=== PATIENT | female | born 1945 | race Caucasian/White ===

== ENCOUNTER → 2017-08-15 | Outpatient (CLI) | payer MEDICARE, OTHER ==
[2014-11-11 13:04] VITALS: BMI 37.9
[~2017-08-15] MED LIST: BENA20TA8 PO; ENAL20TA99 PO; HYDR-317 PO; KET10 PO; PRAV40TA78 PO; VALE150C PO
--- NOTE | 2017-08-15 11:39 | RADIOLOGY IMAGING REPORT ---
FACILITY: [facility] - [place] PATIENT NAME: Lauren Garay : 1945 MR: [id number] V: [id number] EXAM DATE: ORDERING PHYSICIAN: IRMA PAULINO TECHNOLOGIST: Location: [facility] [place] Patient: Lauren Garay : 1945 Visit/Account:[id number] Date of Sevice: 08/15/2017 DEXA Scan Clinical history: Asymptomatic postmenopausal state. Comparison: DEXA scan from 02/26/2000. LUMBAR SPINE: The bone mineral density (BMD) measured from L1-L4 correlates with a Z-score of 0.1 and a T-score of -1 which is Normal as defined by the World Health Organization. The corresponding risk of fracture i n the lumbar spine is 2 times increased compared with a young adult reference population. This value has decreased by 13.7 % since the prior study. More than 5% change is considered significant. HIP: Bone mineral density (BMD) measured in the LEFT total hip region correlates with a Z-score -0.3 and a T-score of -1.4 which is osteopenia as defined by the World Health Organization. The corresponding risk of fracture in the hip is 2-3 times increased compared to a young adult reference population. Th is value has decreased by 22 % since the prior study. More than 5% change is considered significant. T score left femoral neck -2.1 Bone mineral density (BMD) measured in the Femoral Neck region measures 0.745 g/cm?. IMPRESSION: 1. Lumbar spine: Normal. There has been 13.7% decrease in the bone mineral density since the previo us exam. 2. Left Total Hip: Osteopenia. There has been 22% decrease in the bone mineral density since the pr evious exam. 3. Femoral Neck: Bone Mineral Density is 0.745 g/cm? The next DEXA scan of this patient should include the following sites: L1-L4 and the left hip. FRAX? WHO Fracture Risk Assessment Tool link: <http://www.shef.ac.uk/FRAX/tool.jsp?locationValue=9> PLEASE NOTE: 1) The World Health Organization defines low BMD as follows: T-score Normal > -1 Osteopenia < -1 and > -2.5 Osteoporosis < -2.5 without fractures Established osteoporosis < -2.5 with fractures 2) In general, you may wish to consider: Diagnosis Treatment Follow-up DEXA Normal BMD Prevention 2-3 years Osteopenia Prevention/therapy 1-2 years Osteoporosis Therapy Yearly 3) Fracture risk estimated from the T-score is more accurate for vertebral fractures (often spontane ous) than for hip fractures. Report Dictated By: Mahnaz Wadsworth MD at 08/15/2017 11:32 AM Report E-Signed By: Mahnaz Wadsworth MD at 08/15/2017 11:34 AM WSN:[email or web address]
--- NOTE | 2017-08-15 11:43 | RADIOLOGY IMAGING REPORT ---
[place] [facility] [place] Lauren Garay : 1945 MR: [id number] V: [id number] EXAM DATE: ORDERING PHYSICIAN: IRMA PAULINO TECHNOLOGIST: Location: [facility] Patient: Lauren Garay : 1945 Visit/Account:[id number] Date of Sevice: 08/15/2017 THYROID HISTORY: thyroid nodules COMPARISON: July 15, 2016 FINDINGS: SIZE: Normal. Right lobe: 4.8 x 1.9 x 1.6 cm Left lobe: 4.6 x 1.3 x 1.4 cm Isthmus: 6 mm PARENCHYMA: Homogeneous. NODULES: Right lobe: * There are several well-circumscribed cystic and solid hypoechoic nodules in the right lobe all dionisio suring less than 1 cm Left lobe: * There are several cystic and well-circumscribed solid nodules in the left lobe all measuring less than 1 cm. Isthmus: * There is a is a solid well-circumscribed hypoechoic nodule in the isthmus measuring 8 x 6 x 5 mm a nd appears decreased in size when compared to the prior study VASCULARITY: Within normal limits. ADDITIONAL FINDINGS: None. IMPRESSION: A well-circumscribed solid and cystic hypoechoic nodules in both lobes of the thyroid gland all measu ring less than 1 cm The previously noted partially complex nodule in the isthmus has decrease in size and now measures 8 x 6 x 5 mm. REFERENCE: 2015 [place] [employer] Management Guidelines for Adult Patients with Thyroid Nodules and D ifferentiated Thyroid Cancer: The [place] [employer] Guidelines Task Force on Thyroid Nodul es and Differentiated Thyroid Cancer. SONOGRAPHIC PATTERNS: * Benign: Purely cystic nodules (no solid component); estimated risk of malignancy <1 percent; no bi opsy recommended. * Very Low Suspicion: Spongiform or partially cystic nodules without any of the sonographic features described in low, intermediate, or high suspicion patterns; estimated risk of malignancy <3 percent; consider FNA at > 2 cm (Observation without FNA is also a reasonable option). * Low Suspicion: Isoechoic or hyperechoic solid nodule, or partially cystic nodule with eccentric so lid areas, without microcalcification, irregular margin or ETE (extra-thyroidal extension), or taller than wide shape; estimated risk of malignancy 5-10 percent; recommend FNA at >1.5 cm. * Intermediate Suspicion: Hypoechoic solid nodule with smooth margins without microcalcifications, E TE (extra-thyroidal extension), or taller than wide shape; estimated risk of malignancy 10-20 percent ; recommend FNA at > 1 cm. * High Suspicion: Solid hypoechoic nodule or solid hypoechoic component of a partially cystic nodule with one or more of the following features: irregular margins (infiltrative, microlobulated), microc alcifications, taller than wide shape, rim calcifications with small extrusive soft tissue component, evidence of ETE (extra-thyroidal extension); estimated risk of malignancy >70-90 percent; recommend FNA at > 1 cm. NOTES: * Although a sonographically suspicious subcentimeter thyroid nodule without evidence of extrathyroi moreno extension or sonographically suspicious lymph nodes may be observed with close sonographic follow -up rather than pursuing immediate FNA, patient age and preference may modify decision-making. A > 50% interval increase in nodule volume and/or development of new suspicious sonographic features are felt to be a valid reasons for potential re-aspiration of a nodule previously shown to have benig n FNA cytology. Report Dictated By: Mahnaz Wadsworth MD at 08/15/2017 11:34 AM Report E-Signed By: Mahnaz Wadsworth MD at 08/15/2017 11:39 AM WSN:[email or web address]
--- NOTE | 2017-08-15 15:28 | RADIOLOGY IMAGING REPORT ---
FACILITY: [facility] [place] PATIENT NAME: CATRINA STEIN : [id number] MR: [id number] V: [id number] EXAM DATE: [id number] ORDERING PHYSICIAN: IRMA PAULINO TECHNOLOGIST: Kim Shabazz PROCEDURE:BILATERAL DIGITAL SCREENING MAMMOGRAM WITH CAD ASSISTED INTERPRETATION & 3D TOMOSYNTHESIS COMPARISON:Prior mammograms 07/15/16, 03/28/15, 03/13/15, 12/21/13. INDICATIONS:screening FINDINGS: Small amount of fibroglandular tissue is seen throughout the breasts. The parenchymal pattern has remained stable allowing for difference in mammographic technique & patient positioning. There is no evidence of malignant appearing mass, malignant appearing calcifications or other secondary sign of malignancy in either breast. DIAGNOSTIC CATEGORY 1--NEGATIVE. RECOMMENDATIONS: ROUTINE MAMMOGRAM AND CLINICAL EVALUATION. IMPRESSION: BIRADS 1: Negative No significant abnormality is seen. Dictated by: Mahnaz Wadsworth M.D. on 08/15/2017 at 12:02 Transcribed by: JUSTICE on 08/15/2017 at 13:20 Approved by: Mahnaz Wadsworth M.D. on 08/15/2017 at 15:27 [facility]
== END ==
LOC: MAMO 01:40
PROVIDERS: ATTEND Nurse Practitioner Family
DX: Z13.820 Encounter for screening for osteoporosis (principal); Z12.31 Encounter for screening mammogram for malignant neoplasm of breast; M85.88 Other specified disorders of bone density and structure, other site; Z78.0 Asymptomatic menopausal state; E04.2 Nontoxic multinodular goiter
CPT/HCPCS: 76536; 77063; 77067; 77080

== ENCOUNTER → 2018-01-26 | Outpatient (CLI) | payer MEDICARE, OTHER ==
[2014-11-11 13:04] VITALS: BMI 37.9
[~2018-01-26] MED LIST changes: +BENA20TA64 PO; -BENA20TA8 PO
[2018-01-26 08:52] LABS: PLATELET COUNT, AUTOMATED 181 K/uL (150-450)
[2018-01-26 09:10] LABS: LDL CHOLESTEROL 99 mg/dl
== END ==
LOC: LAB 08:19
PROVIDERS: ATTEND Nurse Practitioner Family
DX: E78.5 Hyperlipidemia, unspecified (principal); E04.1 Nontoxic single thyroid nodule; I10 Essential (primary) hypertension
CPT/HCPCS: 36415; 82040; 82247; 82310; 82374; 82435; 82465; 82565; 82947; 83718; 84075; 84132; 84155; 84295; 84443; 84450; 84460; 84478; 84520; 85025

== ENCOUNTER 2018-02-25 20:55 | Emergency (ER) | payer MEDICARE, OTHER ==
[2014-11-11 13:04] VITALS: Wt 81.6 kg
[~2018-02-25 20:55] MED LIST changes: +BENZ200C15 PO; +CIPR-344 PO; +FLU180SY11 IM; +PNEU0.5D3 IM; +ROSU10TA5 PO
[2018-02-25] MEDS ORDERED: PRAV20TA65 PO (21:11)
--- NOTE | 2018-02-25 21:16 | ER Report ---
History and Physical Time Seen By MD: 21:17 Hx. of Stated Complaint: PT STATES SHE FELT NAUSEOUS FRIDAY, FELT BETTER FRIDAY. THEN FRIDAY NIGHT STARTED FEELING BAD AGAIN. DENIES ANY ABDOMINAL PAIN. HPI/ROS CHIEF COMPLAINT: Nausea HISTORY OF PRESENT ILLNESS: This is a 73-year-old female. She was nauseated on Friday, felt better on Friday, then nauseated again. Nausea continues. Generalized discomfort in the abdomen but no pain. No chest pain or shortness of breath. She did have chills last night but no fever or chills today. Has a mild cough. Has chronic sinus congestion which is unchanged. Denies any dysuria or fr equency. Very limited in the way of bowel movements but she has not been eating much. Denies constipation or diarrhea. Allergies: Coded Allergies: amoxicillin (Verified Allergy, Intermediate, RASH, 11/10/14) Penicillins (Verified Allergy, Mild, RASH, 01/18/08) Home Meds Active Scripts Ondansetron (ONDANSETRON ODT) 4 Mg Tab.rapdis, 4 MG PO Q6H PRN for NAUSEA/VOMITING, #20 TAB 0 Refills Prov:MELISSA JACINTO MD 02/25/18 Sulfamethoxazole/Trimet 800-160 Mg Tab (BACTRIM DS TABLET) 1 Each Tablet, 1 TAB PO Q12H, #12 TAB 0 Refills Prov:MELISSA JACINTO MD 02/25/18 Benazepril Hcl (BENAZEPRIL HCL) 20 Mg Tab, 2 TAB PO QDAY, #180 TAB Prov:IRMA PAULINO APRN-C 02/25/18 Rosuvastatin Calcium (Rosuvastatin Calcium) 10 Mg Tablet, 1 TAB PO DAILY, #90 TAB 0 Refills Prov:IRMA PAULINO APRN-C 01/29/18 Reported Medications Pravastatin Sodium (PRAVACHOL) 20 Mg Tablet, 20 MG PO QDAY, TAB 02/25/18 Valerian Root Extract (Valerian) 150 Mg Capsule, 1-2 CAP PO QWEEK 07/14/17 Discontinued Scripts Ciprofloxacin Hcl 500 Mg Tab (CIPRO 500 MG TAB) 500 Mg Tablet, 1 TAB PO BID, #12 TAB 0 Refills For diarrhea 1 tab twice daily x 3 days. If fever, bloody stools or not resolved within 72 hrs seek medical attention. Prov:IRMA PAULINO DORON WATER MECHANIC-C 02/25/18 Benzonatate (BENZONATATE) 200 Mg Capsule, 1 CAP PO TID PRN for COUGH, #15 CAPSULE 0 Refills Prov:IRMA PAULINO APRN WATER MECHANIC-C 01/29/18 Reviewed Nurses Notes: Yes Hx Smoking: Yes Smoking Status: Never Smoker, Former Smoker Hx Substance Use Disorder: No Hx Alcohol Use: Yes Constitutional Vital Sign - Last 24 Hours 02/25/18 02/25/18 02/25/18 02/25/18 21:03 21:04 21:08 21:25 Temp 98.9 Pulse 123 104 Resp 20 16 B/P (MAP) 167/97 167/97 (120) 151/95 (113) Pulse Ox 90 90 O2 Delivery Room Air 02/25/18 02/25/18 02/25/18 02/25/18 21:30 21:35 22:05 22:20 Pulse 105 110 103 Resp 43 31 15 B/P (MAP) 142/78 (99) Pulse Ox 84 93 94 Physical Exam General Appearance: The patient is alert. No acute distress. Eyes: Pupils are equal, round. Reactive to light. No pallor, injection or icterus. Extraocular movements are intact. ENT: Mucous membranes are moist. Normal oral mucosa. Posterior oropharynx is n ormal. Normal tympanic membranes and canals. Neck: Supple and non tender. Respiratory: Lungs are clear to auscultation. Cardiovascular: Regular rate and rhythm. No murmurs, gallops or rubs. Normal cap illary refill. Gastrointestinal: Abdomen is soft, discomfort throughout but no acute tenderness. Nondistended. No masses or organomegaly. Normal active bowel sounds. No costovertebral angle tenderness with percussion. Neurological: Alert and oriented x3. Skin: Warm and dry. No rashes. Musculoskeletal: Extremities are nontender. Full range of motion. DIFFERENTIAL DIAGNOSIS: After history and physical exam, differential diagnosis was considered for chills with nausea, uncertain etiology but will need to look at multiple factors such as urinary infection, bowel problem, pneumonia, acute coronary syndrome, metabolic disturbance. Medical Decision Making Data Points Result Diagram: 02/25/18210602/25/182106 Laboratory Hematology Test 02/25/18 21:07 02/25/18 21:36 02/25/18 22:03 Red Blood Count 5.02 M/uL (4.17-5.56) Mean Corpuscular Volume 89.7 fL (80.0-96.0) Mean Corpuscular Hemoglobin 31.0 pg (26.0-33.0) Mean Corpuscular Hemoglobin Concent 34.5 g/dL (32.0-36.0) Red Cell Distribution Width 13.6 % (11.5-14.5) Mean Platelet Volume 8.7 fL (7.2-11.1) Neutrophils (%) (Auto) 72.1 % (39.4-72.5) Lymphocytes (%) (Auto) 13.8 % (17.6-49.6) Monocytes (%) (Auto) 12.9 % (4.1-12.4) Eosinophils (%) (Auto) 0.7 % (0.4-6.7) Basophils (%) (Auto) 0.5 % (0.3-1.4) Nucleated RBC Relative Count (auto) 0.1 /100WBC Neutrophils # (Auto) 5.0 K/uL (2.0-7.4) Lymphocytes # (Auto) 1.0 K/uL (1.3-3.6) Monocytes # (Auto) 0.9 K/uL (0.3-1.0) Eosinophils # (Auto) 0.0 K/uL (0.0-0.5) Basophils # (Auto) 0.0 K/uL (0.0-0.1) Nucleated RBC Absolute Count (auto) 0.00 K/uL Sodium Level 141 mmol/L (137-145) Potassium Level 3.9 mmol/L (3.5-5.0) Chloride Level 105 mmol/L (98-107) Carbon Dioxide Level 24 mmol/L (22-31) Blood Urea Nitrogen 13 mg/dl (7-18) Creatinine 0.90 mg/dl (0.52-1.04) Glomerular Filtration Rate Calc > 60.0 Random Glucose 126 mg/dl (75-110) Calcium Level 9.8 mg/dl (8.4-10.2) Total Bilirubin 0.8 mg/dl (0.2-1.3) Aspartate Amino Transf (AST/SGOT) 80 U/L (0-35) Alanine Aminotransferase (ALT/SGPT) 75 U/L (0-56) Alkaline Phosphatase 221 U/L (0-126) Troponin I < 0.012 ng/ml Total Protein 7.7 g/dl (6.3-8.2) Albumin 4.0 g/dl (3.5-5.0) Influenza Virus Type A (PCR) Negative (NEGATIVE) Influenza Virus Type B (PCR) Negative (NEGATIVE) Urine Color Yellow Urine Clarity Cloudy Urine pH 5.0 pH (4.8-9.5) Urine Specific [place] 1.012 Urine Protein 100 mg/dL (NEGATIVE) Urine Glucose (UA) Negative mg/dL (NEGATIVE) Urine Ketones 20 mg/dL (NEGATIVE) Urine Blood Moderate (NEGATIVE) Urine Nitrite Negative (NEGATIVE) Urine Bilirubin Negative (NEGATIVE) Urine Urobilinogen Negative mg/dL (0.2-1.9) Urine Leukocyte Esterase Moderate (NEGATIVE) Urine RBC 205 /HPF (0-2/HPF) Urine WBC 89 /HPF (0-5/HPF) Urine Squamous Epithelial Cells Many /LPF (</=FEW) Urine Transitional Epithelial Cells Moderate /LPF (NONE-FEW) Urine Bacteria Few /HPF (NONE-FEW) Urine Mucus Few /HPF (NONE-FEW) Chemistry Test 02/25/18 21:07 02/25/18 21:36 02/25/18 22:03 White Blood Count 6.9 k/uL (4.5-11.0) Red Blood Count 5.02 M/uL (4.17-5.56) Hemoglobin 15.5 g/dL (12.0-16.0) Hematocrit 45.0 % (34.0-47.0) Mean Corpuscular Volume 89.7 fL (80.0-96.0) Mean Corpuscular Hemoglobin 31.0 pg (26.0-33.0) Mean Corpuscular Hemoglobin Concent 34.5 g/dL (32.0-36.0) Red Cell Distribution Width 13.6 % (11.5-14.5) Platelet Count 236 K/uL (150-450) Mean Platelet Volume 8.7 fL (7.2-11.1) Neutrophils (%) (Auto) 72.1 % (39.4-72.5) Lymphocytes (%) (Auto) 13.8 % (17.6-49.6) Monocytes (%) (Auto) 12.9 % (4.1-12.4) Eosinophils (%) (Auto) 0.7 % (0.4-6.7) Basophils (%) (Auto) 0.5 % (0.3-1.4) Nucleated RBC Relative Count (auto) 0.1 /100WBC Neutrophils # (Auto) 5.0 K/uL (2.0-7.4) Lymphocytes # (Auto) 1.0 K/uL (1.3-3.6) Monocytes # (Auto) 0.9 K/uL (0.3-1.0) Eosinophils # (Auto) 0.0 K/uL (0.0-0.5) Basophils # (Auto) 0.0 K/uL (0.0-0.1) Nucleated RBC Absolute Count (auto) 0.00 K/uL Glomerular Filtration Rate Calc > 60.0 Calcium Level 9.8 mg/dl (8.4-10.2) Total Bilirubin 0.8 mg/dl (0.2-1.3) Aspartate Amino Transf (AST/SGOT) 80 U/L (0-35) Alanine Aminotransferase (ALT/SGPT) 75 U/L (0-56) Alkaline Phosphatase 221 U/L (0-126) Troponin I < 0.012 ng/ml Total Protein 7.7 g/dl (6.3-8.2) Albumin 4.0 g/dl (3.5-5.0) Influenza Virus Type A (PCR) Negative (NEGATIVE) Influenza Virus Type B (PCR) Negative (NEGATIVE) Urine Color Yellow Urine Clarity Cloudy Urine pH 5.0 pH (4.8-9.5) Urine Specific [place] 1.012 Urine Protein 100 mg/dL (NEGATIVE) Urine Glucose (UA) Negative mg/dL (NEGATIVE) Urine Ketones 20 mg/dL (NEGATIVE) Urine Blood Moderate (NEGATIVE) Urine Nitrite Negative (NEGATIVE) Urine Bilirubin Negative (NEGATIVE) Urine Urobilinogen Negative mg/dL (0.2-1.9) Urine Leukocyte Esterase Moderate (NEGATIVE) Urine RBC 205 /HPF (0-2/HPF) Urine WBC 89 /HPF (0-5/HPF) Urine Squamous Epithelial Cells Many /LPF (</=FEW) Urine Transitional Epithelial Cells Moderate /LPF (NONE-FEW) Urine Bacteria Few /HPF (NONE-FEW) Urine Mucus Few /HPF (NONE-FEW) Urinalysis Test 02/25/18 22:03 Urine Color Yellow Urine Clarity Cloudy Urine pH 5.0 pH (4.8-9.5) Urine Specific [place] 1.012 Urine Protein 100 mg/dL (NEGATIVE) Urine Glucose (UA) Negative mg/dL (NEGATIVE) Urine Ketones 20 mg/dL (NEGATIVE) Urine Blood Moderate (NEGATIVE) Urine Nitrite Negative (NEGATIVE) Urine Bilirubin Negative (NEGATIVE) Urine Urobilinogen Negative mg/dL (0.2-1.9) Urine Leukocyte Esterase Moderate (NEGATIVE) Urine RBC 205 /HPF (0-2/HPF) Urine WBC 89 /HPF (0-5/HPF) Urine Squamous Epithelial Cells Many /LPF (</=FEW) Urine Transitional Epithelial Cells Moderate /LPF (NONE-FEW) Urine Bacteria Few /HPF (NONE-FEW) Urine Mucus Few /HPF (NONE-FEW) EKG/Imaging EKG Interpretation 12 lead EKG: Rhythm: Sinus tachycardia, rate 101 [place]: normal QRS: normal ST segments: normal ED Course/Re-evaluation Clinical Indication for ER IV: Hydration, IV Access ED Course EKG negative. X-ray appears normal. Troponin negative. Influenza negative. Urinalysis came back did show cellular and debris, consistent with likely urinary tract infection causing her chills and nausea despite not having dysuria or frequency. We will start her on Bactrim DS twice a day for 7 days. We'll also provide continued Zofran as needed for nausea. She'll rest and increase fluid intake. Decision to Disposition Date: Feb 25, 2018 Decision to Disposition Time: 22:27 Depart Departure Latest Vital Signs Vital Signs Date Time Temp Pulse Resp B/P (MAP) Pulse Ox O2 Delivery O2 Flow Rate FiO2 02/25/18 22:20 103 15 94 02/25/18 21:30 142/78 (99) 02/25/18 21:03 98.9 Room Air Impression: Primary Impression: Urinary tract infection Condition: Improved Disposition: HOME OR SELF-CARE Referrals: IRMA PAULINO APRN WATER MECHANIC-C (PCP) New Scripts Ondansetron (ONDANSETRON ODT) 4 Mg Tab.rapdis 4 MG PO Q6H PRN for NAUSEA/VOMITING, #20 TAB 0 Refills Prov: MELISSA JACINTO MD 02/25/18 Sulfamethoxazole/Trimet 800-160 Mg Tab (BACTRIM DS TABLET) 1 Each Tablet 1 TAB PO Q12H, #12 TAB 0 Refills Prov: MELISSA JACINTO MD 02/25/18 Patient Instructions: Urinary Tract Infection in Women (ED) Additional Instructions: Rest. Increase fluid intake. Take Bactrim DS twice a day for 7 days. Take Zofran 4mg, one every 6 hours as needed for nausea. Problem Qualifiers Primary Impression: Urinary tract infection Urinary tract infection type: acute cystitis Hematuria presence: without hematuria Qualified Codes: N30.00 - Acute cystitis without hematuria MELISSA JACINTO MD Feb 25, 2018 21:16
[2018-02-25] MEDS ORDERED: NS(*) 0.9% 1000 ML BAG 1,000 ML IV ONE (21:30)
[2018-02-25] MEDS ORDERED: ONDANSETRON 4 MG/2 ML VIAL IVP ONE (21:30)
[2018-02-25 21:34] LABS: PLATELET COUNT, AUTOMATED 236 K/uL (150-450)
[2018-02-25] MEDS ORDERED: ONDANSETRON 4 MG ODT TH SL ONE (22:25)
[2018-02-25] MEDS ORDERED: TRIMETHOPRIM/SULFA 160-800 TH 2 TAB/BOTTLE PO ONE (22:25)
[2018-02-25] MEDS ORDERED: TRIMETH/SULFA DS 160-800MG TAB PO ONE (22:25)
[2018-02-25] MEDS ORDERED: SULF-198 PO (22:29)
[2018-02-25] MEDS ORDERED: ONDA4TAB9 PO (22:29)
[2018-02-25 22:30] VITALS: BP 142/74
--- NOTE | 2018-02-25 22:44 | RADIOLOGY IMAGING REPORT ---
FACILITY: [facility] - [place] PATIENT NAME: Lauren Garay : 1945 MR: [id number] V: [id number] EXAM DATE: ORDERING PHYSICIAN: MELISSA JACINTO TECHNOLOGIST: Location: [facility] Patient: Lauren Garay : 1945 Visit/Account:[id number] Date of Sevice: 02/25/2018 ACUTE ABDOMEN SERIES 3 VIEW HISTORY: Abdominal pain for 4 days. Vomiting. COMPARISON: Abdominal ultrasound 11/10/2014. No prior abdominal x-rays. TECHNIQUE: PA upright view of the chest, AP supine and AP upright views of the abdomen. Chest: The lungs are clear. The cardiac and mediastinal silhouettes are within normal limits. There i s mild degenerative change of the spine. 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 Abdomen: The distribution of bowel gas is normal, with bowel in all four quadrants as well as central ly. No free air. No dilated loops of bowel. There is mild degenerative change of the spine. There are surgical clips in the right upper quadrant from cholecystectomy. There are pelvic phleboliths. IMPRESSION: 1. No acute cardiopulmonary process. 2. Unremarkable bowel gas pattern without obstruction. Report Dictated By: Marbella Gandhi at 02/25/2018 10:39 PM Report E-Signed By: Marbella Gandhi at 02/25/2018 10:41 PM WSN:[id number]
--- NOTE | 2018-02-25 23:21 | EKG ---
FACILITY: [facility] PATIENT NAME: CATRINA STEIN : [id number] MR: [id number] V: [id number] EXAM DATE: ORDERING PHYSICIAN: MELISSA JACINTO TECHNOLOGIST: ARTHUR Pollard Reason : CARDIAC Blood Pressure : / mmHG Vent. Rate : 101 BPM Atrial Rate : 101 BPM P-R Int : 152 ms QRS Dur : 074 ms QT Int : 346 ms P-R-T Axes : 061 016 065 degrees QTc Int : 448 ms Sinus tachycardia Possible Left atrial enlargement Borderline ECG When compared with ECG of 10-NOV-2014 12:31, No significant change was found Confirmed by MIKE GARRIDO ([id number]) on 02/26/2018 6:31:41 AM Referred By: Confirmed By:MIKE GARRIDO
== END 2018-02-25 22:42 | disposition home or self-care (01) ==
LOC: ER 21:13
DX: N30.00 Acute cystitis without hematuria (principal)
CPT/HCPCS: 74022; 81001; 84484; 85025; 87502; 93005; 96361; 96374; 99284; A9270; J2405; J7030; 82040; 82247; 82310; 82374; 82435; 82565; 82947; 84075; 84132; 84155; 84295; 84450; 84460; 84520; S0119

== ENCOUNTER 2018-04-22 00:59 | Day surgery (SDC) | payer MEDICARE, OTHER ==
[2014-11-11 13:04] VITALS: Ht 157.5 cm; Wt 78.0 kg
[~2018-04-22] VITALS: Ht 157.5 cm; Wt 78.0 kg
[~2018-04-22 00:59] MED LIST changes: +ONDA4TAB9 PO; +PRAV20TA65 PO; +SULF-198 PO
[2018-04-22] MEDS ORDERED: PROPOFOL EMUL(*) 10MG/ML 20 ML 20 ML ONE (07:05)
[2018-04-22 10:06] VITALS: BP 123/77
[2018-04-22] MEDS ORDERED: LIDOCAINE/SOD BICARB 8.4% SYR ID ONE (10:15)
[2018-04-22] MEDS ORDERED: NORMOSOL R SOLN(*) 1000 ML BAG 1,000 ML IV PRN (10:15)
[2018-04-22 11:15] VITALS: BP 93/65
--- NOTE | 2018-04-22 11:19 | Short(Outpt) Discharge Summary ---
Discharge Summary Reason for Hosp/Final Diag: (1) Colon cancer screening Status: Chronic Hospital Course & Plan: Colonoscopy with polypectomy x1 completed without problems. Departure Discharge to: Home, Self Care Discharge Instructions Home Meds Active Scripts Benazepril Hcl (BENAZEPRIL HCL) 20 Mg Tab, 2 TAB PO QDAY, #180 TAB Prov:XIMENAJOONIRMAMARK ADAMSP-C 02/25/18 Rosuvastatin Calcium (Rosuvastatin Calcium) 10 Mg Tablet, 1 TAB PO DAILY, #90 TAB 0 Refills Prov:XIMENACARLITOIRMAMARK SAL LEGAL CLERK-C 01/29/18 Reported Medications Pravastatin Sodium (PRAVACHOL) 20 Mg Tablet, 20 MG PO QDAY, TAB 02/25/18 Valerian Root Extract (Valerian) 150 Mg Capsule, 1-2 CAP PO QWEEK 07/14/17 Diet: Regular Activity: As Tolerated Special Instructions: Your colonoscopy was completed without any problems and your prep was excellent (Good Job!!). I removed a single small polyp from your colon and it was sent to pathology. My office will call you in the next week or two and let you know what the polyp is and when your next colonoscopy should be (either 5 or 10 years) depending on pathology results. MIKE CHOWDARY MD Apr 22, 2018 11:19
[2018-04-22 11:30] VITALS: BP 118/78
[2018-04-22 12:00] VITALS: BP 128/83
[2018-04-22 12:11] VITALS: BP 130/69
[2018-04-22 12:13] VITALS: BP 119/78
--- NOTE | 2018-04-22 12:38 | NUR ---
1115- PT. RECEIVED FROM OR VIA STRETCHER WITH THE SIDERAILS UP. PT. IN A LEFT LATERAL POSITION AND SLEEPING BUT AROUSABLE TO COMMANDS. 1116- TURNED PT. O2 DOWN TO 2LPM NC. 1132- PT. RETURNED TO ROOM AIR. 1140- PT. GIVEN ICE WATER AND STATES SHE IS GOING TO TAKE A NAP UNTIL HER GETS BACK AROUND NOON. 1210- HER IS BACK AND IS NOW IN THE ROOM 1211- PT. STATES THAT SHE IS READY TO GO HOME SO ORTHOSTATICS PREFORMED AND PT. TOLERATED WELL WITH NO DIZZINESS OR LIGHTHEADEDNESS. 1215- PT. GETTING DRESSED. 1220- DISCHARGE INSTRUCTIONS GONE OVER WITH PT. AND AND THEY STATED UNDERSTANDING. 1225- IV TAKEN OUT AND PRESSURE DRESSING APPLIED. 1230- PT. ACCOMPANIED OUT TO VEHICLE BY NETO MILLER AND .
== END 2018-04-22 12:30 | disposition home or self-care (01) ==
LOC: OR 00:59
PROVIDERS: ATTEND Surgery
DX: Z12.11 Encounter for screening for malignant neoplasm of colon (principal); D12.4 Benign neoplasm of descending colon
CPT/HCPCS: 00811; 45380; 88305; J2704

== ENCOUNTER → 2018-09-22 | Outpatient (CLI) | payer MEDICARE, OTHER ==
[2014-11-11 13:04] VITALS: BMI 37.9
[~2018-09-22] MED LIST changes: +ROSU10TA PO
--- NOTE | 2018-09-23 10:20 | RADIOLOGY IMAGING REPORT ---
FACILITY: [facility] - [place] PATIENT NAME: CATRINA STEIN : [id number] MR: [id number] V: [id number] EXAM DATE: [id number] ORDERING PHYSICIAN: JEAN PIERRE AUSTIN TECHNOLOGIST: Gabriela Cabral PROCEDURE: BILATERAL DIGITAL SCREENING MAMMOGRAM WITH CAD ASSISTED INTERPRETATION & 3D TOMOSYNTHESIS REASON FOR STUDY: Screening. FAMILY HISTORY OF BREAST CANCER: None. BREAST PROCEDURES/TREATMENTS: None. COMPARISON: Dating back to 2013. VIEWS OBTAINED: 2D & 3D full field CC & MLO. BREAST DENSITY: Scattered fibroglandular densities. MAMMOGRAM FINDINGS: There is no dominant mass, suspicious cluster of microcalcifications or persistent areas of architectural distortion. IMPRESSION: BIRADS 1: Negative. DIAGNOSTIC CATEGORY 1--NEGATIVE. RECOMMENDATIONS: ROUTINE MAMMOGRAM AND CLINICAL EVALUATION. Dictated by: Marcello Palencia M.D. on 09/23/2018 at 9:06 Transcribed by: JUSTICE on 09/23/2018 at 10:11 Approved by: Marcello Palencia M.D. on 09/23/2018 at 10:17 [facility]
== END ==
LOC: MAMO 00:51
PROVIDERS: ATTEND Emergency Medicine
DX: Z12.31 Encounter for screening mammogram for malignant neoplasm of breast (principal)
CPT/HCPCS: 77063; 77067